=== PATIENT | female | born 1965 | race Caucasian/White ===

== ENCOUNTER → 2023-04-11 12:18 | Outpatient (REF) | payer OTHER, SELFPAY | LOC: HWRAD 12:18 | PROVIDERS: ATTENDING PHYSICIAN Physician Assistant Medical | DX: M25.512 Pain in left shoulder (principal); M79.644 Pain in right finger(s) | CPT/HCPCS: 73030; 73130 ==

== ENCOUNTER 2023-04-13 17:09 | Emergency (ER) | payer OTHER, SELFPAY ==
[2023-04-13 17:11] VITALS: BP 114/73
--- NOTE | 2023-04-13 19:03 | ED.GENMED ---
History of Present Illness
General
Chief Complaint: Musculo-Skeletal Complaint
Source: patient
Exam Limitations: none
Time Seen by Provider: 04/13/23 18:33
Nursing documentation reviewed up to this point in time: agreed with
Travel History
Have you had any contact with someone who has COVID-19?: No
Do you have any symptoms of coronavirus? Fever > 100 degrees, chills, cough, shortness of breath, sore throat, loss of taste or smell, muscle aches, or headache?: No
History of Present Illness
History of Present Illness:
58-year-old female presents to the ER for evaluation of left shoulder pain. Patient reports she has had chronic left shoulder pain for the past 3 months however this past week pain has worsened. She believes it worsened after lifting a table on
Saturday. She had increased pain on . She denies any trauma. She saw her PCP and had an outpatient x-ray of her left shoulder 2 days ago. X-ray report from 04/11 shows elongated calcific density along the lateral margin of the humeral
head consistent with calcific tendinopathy of the rotator cuff.
Patient has been taking ibuprofen however this has not relieved her symptoms. She tried an Oxycodone which seemed to help a little. She presented here to the ER however because of worsening pain. She has an appointment with orthopedics ,
DR Hanley on Saturday.
Review of Systems
Review of Systems
Allergies reviewed?: Yes
All Other Systems: ROS reviewed and negative except as documented in HPI and ROS
Constitutional: Reports no symptoms
Musculoskeletal: Reports other (left shoulder pain )
Skin: Reports no symptoms
Neurological: Reports no symptoms
Hematologic/Lymphatic: Reports no symptoms
Psychiatric: Reports no symptoms
Phy Exam
General Physical Exam
General Presentation: no apparent distress
General Skin: warm and dry
General Mental: alert
General Hydration: appears well hydrated
Neurological Exam
Neurological Exam: alert and oriented x3
Musculoskeletal Exam
Musculoskeletal Exam: other (Left upper extremity strong pulses normal inspection no erythema ecchymosis or swelling, normal distal sensation normal cap refill, normal biztalk developer strength)
Course
Orders/Labs/Results
Orders:
Orders
04/13/23 19:02
Acetaminophen [Tylenol] 1,000 mg PO NOW STA
HYDROmorphone [Dilaudid] 1 mg IM NOW STA
Ibuprofen [Motrin] 600 mg PO NOW STA
Vital Signs
Initial and Last Documented VS:
Initial Vital Signs
Temp Pulse Resp BP Pulse Ox
98.8 F 93 22 114/73 100
04/13/23 17:11 04/13/23 17:11 04/13/23 17:11 04/13/23 17:11 04/13/23 17:11
Last Documented Vital Signs
Temp Pulse Resp BP Pulse Ox
98.8 F 93 22 114/73 100
04/13/23 17:11 04/13/23 17:11 04/13/23 17:11 04/13/23 17:11 04/13/23 17:11
MDM/Problems Addressed
Differential Diagnosis Includes:
Not limited to tendinitis, shoulder pain
MDM/Problems Addressed:
Patient has had shoulder pain for the past several months had an outpatient x-ray which is documented shows signs consistent with calcific tendinopathy. She has appoint with orthopedics on Saturday but continues to complain of intense pain which
brought her here to the ER. She was given a dose of IM narcotic Dilaudid along with Tylenol ibuprofen feeling much better. I discussed with patient plan to take ibuprofen every 8 hours however if needed a prescription for narcotic medication will
b sent to pharmacy. Patient has appointment scheduled for Saturday. She already presents with sling for support discussed with patient the importance of doing gentle range of motion exercises.
*Radiology
Radiology exam reviewed: other (outpt xray reviewed )
*Critical Care Note
Total Time (30-74mins, 75-104mins- exclusive of procedures): Not Applicable
ED Attending Note
-
Portions of this chart may have been created with voice recognition software.� Occasional wrong word or��sound alike� substitutions may have occurred due to the inherent limitations of voice recognition software.
Discharge Plan
Departure
Patient Disposition: Home (Routine Discharge)
Date of Disposition: 04/13/23
Time of Disposition: 20:38
Patient with high blood pressure during this ER visit?: No
Condition: Fair
Covid-19: Not Applicable
Discharge Problem:
Acute shoulder pain
Instructions: Shoulder Pain (DC)
Prescriptions:
New
hydrocodone-acetaminophen 5-325 mg tablet
1 tab PO Q6H PRN (Reason: Pain) Qty: 10 0RF
Referrals:
Alexander Hanley MD [Active] -
Susy Marc PA [Family Provider] -
Activity Restrictions/Additional Instructions:
Ibuprofen 600 mg every 8 hours with food. If needed a prescription for pain medication was sent to your pharmacy. This medication is a narcotic and will make you drowsy.
no driving or drinking alcohol while taking this medication. This medication may cause constipation please take [id number] stool softener while taking this medication. When pain is improved please remove sling and do gentle range of motion
exercises.
Return if any worsening of symptoms. Follow-up with orthopedics as scheduled on Saturday
Interventions
Interventions:
*Risk Screen - Suicide Last Done: 04/13/23 18:37
*General Assessment Last Done: 04/13/23 18:37
*Neglect/Abuse Screening Last Done: 04/13/23 18:37
ED-Musculoskeletal Assessment Last Done: 04/13/23 18:38
[2023-04-13] MEDS: TYLENOL 1000 MG PO (19:16)
[2023-04-13] MEDS: DILAUDID 1 MG IM (19:16)
[2023-04-13] MEDS: MOTRIN 600 MG PO (19:16)
== END 2023-04-13 21:24 | disposition home or self-care (01) ==
LOC: EMR 17:09
PROVIDERS: EMERGENCY PHYSICIAN Emergency Medicine; FAMILY PHYSICIAN Physician Assistant Medical
DX: M25.512 Pain in left shoulder (principal)
CPT/HCPCS: 99284; 96372

== ENCOUNTER → 2023-10-24 15:54 | Outpatient (REF) | payer OTHER, SELFPAY | LOC: HWWDC 15:54 | PROVIDERS: ATTENDING PHYSICIAN Obstetrics & Gynecology; FAMILY PHYSICIAN Physician Assistant Medical | DX: Z12.31 Encounter for screening mammogram for malignant neoplasm of breast (principal) | CPT/HCPCS: 77063; 77067 ==

== ENCOUNTER → 2024-08-17 07:15 | Outpatient (REF) | payer OTHER, SELFPAY | LOC: HWRAD 07:15 | PROVIDERS: ATTENDING PHYSICIAN Internal Medicine Gastroenterology; FAMILY PHYSICIAN Physician Assistant Medical | DX: K82.4 Cholesterolosis of gallbladder (principal) | CPT/HCPCS: 76700 ==

== ENCOUNTER → 2024-12-08 15:17 | Outpatient (REF) | payer OTHER, SELFPAY | LOC: HWWDC 15:17 | PROVIDERS: ATTENDING PHYSICIAN Obstetrics & Gynecology; FAMILY PHYSICIAN Physician Assistant Medical | DX: Z12.31 Encounter for screening mammogram for malignant neoplasm of breast (principal) | CPT/HCPCS: 77063; 77067 ==

== ENCOUNTER 2024-12-25 06:21 | Day surgery (SDC) | payer OTHER, SELFPAY | END 2024-12-25 13:28 | disposition home or self-care (01) | LOC: GI 06:21 | PROVIDERS: ATTENDING PHYSICIAN Internal Medicine Gastroenterology | DX: Z12.11 Encounter for screening for malignant neoplasm of colon (principal); K57.30 Diverticulosis of large intestine without perforation or abscess without bleeding; D12.3 Benign neoplasm of transverse colon; Z86.0100 Personal history of colon polyps, unspecified | CPT/HCPCS: 45385; 88305 ==